=== PATIENT | female | born 1980 | race Caucasian/White ===

== ENCOUNTER 2017-02-10 18:55 | Emergency (ER) | payer SELFPAY ==
[~2017-02-10 18:55] MED LIST: ALBUTEROL17 GM INH; AMLODIPINE BESY10 MG PO; AMLODIPINE BESYL5 MG PO; ATIVAN0.5 MG PO; ATIVAN1 M2 PO; ATIVAN1 MG; ATIVAN1 MG PO; BACTRIM DS TABL1 TAB PO; BENTYL10 M1 PO; BUSPIRONE HCL15 M2 PO; CATAFLAM50 MG PO; CATAPRES-TTS 11 EACH TP; CIPRO500 M2 PO; CIPROFLOXACIN500 M3 PO; CLINDAMYCIN HC150 MG PO; CLINDAMYCIN HC300 M2 PO; COLACE100 M1 PO; CYCLOBENZAPRINE10 M1 PO; CYCLOBENZAPRINE5 M1 PO; CYMBALTA60 M1 PO; DARVOCET-N 1001 TAB PO; DEXAMETHASONE2 M1 PO; DIFLUCAN150 MG PO; ETODOLAC400 MG/TAB PO; FLEXERIL 10MG PO; GABAPENTIN300 M1 PO; HYDROCHLOROTH12.5 M1 PO; HYDROCHLOROTHIA25 MG PO; HYDROCODON-ACE1 EA16 PO; IBUPROFEN600 M1 PO; INDERAL PO; INDERAL10 MG PO; INDERAL20 MG PO; K-DUR20 ME1 PO; KLONOPIN0.5 MG PO; LEXAPRO10 MG PO; LISINOPRIL10 MG PO; LORAZEPAM1 M1 PO; MACROBID 100 M100 MG; MACROBID 100 M100 MG PO; MOBIC7.5 M2 PO; MOTRIN400 MG PO; NORCO 5-325 TA1 EACH PO; NORCO 5/325 TAB1 TAB PO; NORCO 5/3251 TA1 PO; NORCO 5/3251 TAB PO; OXYCODONE HCL5 M1 PO; PAXIL20 MG; PAXIL20 MG PO; PAXIL40 M1 PO; PAXIL40 MG PO; PERCOCET 5-3251 EACH PO; PHENERGAN W/CO120 ML PO; PREDNISONE10 M1 PO; PRENATAL1 EACH PO; PRENATAL1 TAB; PRENATAL1 TAB PO; PRINZIDE 20/12.1 TAB PO; PROAIR HFA8.5 GM IH; PROVENTIL HFA6.7 G1 IH; PYRIDIUM200 MG PO; ROBAXIN-750750 M1 PO; SOMA350 M1 PO; SUDAFED PO; TERAZOL 320 GM VG; TRANDATE100 MG PO; TYLENOL WITH C1 EACH PO; ULTRAM50 M1 PO; VISTARIL50 MG PO; XANAX1 M1 PO; ZANAFLEX4 M2 PO; ZESTORETIC 10-1 EAC1 PO; ZITHROMAX250 M1 PO; ZITHROMAX250MG Z-PAK PO; [UNRECOGNIZED DRUG - OTHER] PO
[2017-02-10] MEDS ORDERED: NEURONTIN100 M1 PO (19:26)
[2017-02-10] MEDS ORDERED: PROMETHAZINE-C118 ML PO (20:37)
[2017-02-10] MEDS ORDERED: TESSALON PERLE100 M1 PO (20:37)
[2017-02-10] MEDS ORDERED: AZITHROMYCIN250 M1 PO (20:37)
[2017-02-17] MEDS ORDERED: ATIVAN1 M2 PO (15:25)
[2017-05-12] MEDS ORDERED: KEFLEX500 M4 PO (01:21)
[2017-06-26] MEDS ORDERED: ADDERALL 10 MG10 M2 PO (19:47)
[2017-06-27] MEDS ORDERED: PERCOCET 5-3251 EACH PO (13:29)
[2017-07-02] MEDS ORDERED: POTASSIUM CHLO20 ME3 PO (23:19)
[2017-07-02] MEDS ORDERED: VENTOLIN HFA18 G2 PO (23:21)
== END 2017-02-10 20:52 ==
LOC: EDMED 18:55
DX: J20.9 Acute bronchitis, unspecified (principal); I10 Essential (primary) hypertension; F17.210 Nicotine dependence, cigarettes, uncomplicated; Z88.1 Allergy status to other antibiotic agents

== ENCOUNTER 2017-02-17 15:32 | Emergency (ER) | payer SELFPAY ==
[~2017-02-17 15:32] MED LIST changes: +AZITHROMYCIN250 M1 PO; +NEURONTIN100 M1 PO; +PROMETHAZINE-C118 ML PO; +TESSALON PERLE100 M1 PO
[2017-02-17] MEDS ORDERED: CYCLOBENZAPRINE5 M1 PO (16:12)
[2017-05-12] MEDS ORDERED: KEFLEX500 M4 PO (01:21)
[2017-06-26] MEDS ORDERED: ADDERALL 10 MG10 M2 PO (19:47)
[2017-06-27] MEDS ORDERED: PERCOCET 5-3251 EACH PO (13:29)
[2017-07-02] MEDS ORDERED: POTASSIUM CHLO20 ME3 PO (23:19)
[2017-07-02] MEDS ORDERED: VENTOLIN HFA18 G2 PO (23:21)
== END 2017-02-17 15:34 ==
LOC: EDMED 15:32
DX: M54.31 Sciatica, right side (principal); I10 Essential (primary) hypertension; Z79.899 Other long term (current) drug therapy

== ENCOUNTER 2017-02-26 19:04 | Emergency (ER) | payer SELFPAY ==
[2017-02-26] MEDS ORDERED: ETODOLAC400 MG/TAB PO (19:40)
[2017-05-12] MEDS ORDERED: KEFLEX500 M4 PO (01:21)
[2017-06-26] MEDS ORDERED: ADDERALL 10 MG10 M2 PO (19:47)
[2017-06-27] MEDS ORDERED: PERCOCET 5-3251 EACH PO (13:29)
[2017-07-02] MEDS ORDERED: POTASSIUM CHLO20 ME3 PO (23:19)
[2017-07-02] MEDS ORDERED: VENTOLIN HFA18 G2 PO (23:21)
== END 2017-02-26 21:26 ==
LOC: EDMED 19:04
DX: R51 Headache (principal); R42 Dizziness and giddiness; I10 Essential (primary) hypertension; F17.200 Nicotine dependence, unspecified, uncomplicated; Z79.899 Other long term (current) drug therapy
CPT/HCPCS: J0780; J1885; J2060

== ENCOUNTER 2017-02-28 16:41 | Emergency (ER) | payer SELFPAY ==
[2017-02-28] MEDS ORDERED: CYCLOBENZAPRINE5 M1 PO (16:47)
[2017-02-28] MEDS ORDERED: ATIVAN1 M2 PO (17:22)
[2017-05-12] MEDS ORDERED: KEFLEX500 M4 PO (01:21)
[2017-06-26] MEDS ORDERED: ADDERALL 10 MG10 M2 PO (19:47)
[2017-06-27] MEDS ORDERED: PERCOCET 5-3251 EACH PO (13:29)
[2017-07-02] MEDS ORDERED: POTASSIUM CHLO20 ME3 PO (23:19)
[2017-07-02] MEDS ORDERED: VENTOLIN HFA18 G2 PO (23:21)
== END 2017-02-28 17:28 ==
LOC: EDMED 16:41
DX: F41.0 Panic disorder [episodic paroxysmal anxiety] (principal); F19.939 Other psychoactive substance use, unspecified with withdrawal, unspecified; I10 Essential (primary) hypertension; Z90.49 Acquired absence of other specified parts of digestive tract; Z79.899 Other long term (current) drug therapy; Z98.890 Other specified postprocedural states

== ENCOUNTER 2017-03-11 17:43 | Emergency (ER) | payer SELFPAY ==
[2017-03-11] MEDS ORDERED: ATIVAN1 M2 PO (18:18)
[2017-05-12] MEDS ORDERED: KEFLEX500 M4 PO (01:21)
[2017-06-26] MEDS ORDERED: ADDERALL 10 MG10 M2 PO (19:47)
[2017-06-27] MEDS ORDERED: PERCOCET 5-3251 EACH PO (13:29)
[2017-07-02] MEDS ORDERED: POTASSIUM CHLO20 ME3 PO (23:19)
[2017-07-02] MEDS ORDERED: VENTOLIN HFA18 G2 PO (23:21)
== END 2017-03-11 18:33 ==
LOC: EDMED 17:43
DX: F41.9 Anxiety disorder, unspecified (principal); I10 Essential (primary) hypertension; F17.210 Nicotine dependence, cigarettes, uncomplicated; Z90.49 Acquired absence of other specified parts of digestive tract

== ENCOUNTER 2017-03-24 18:51 | Emergency (ER) | payer SELFPAY ==
[2017-03-24] MEDS ORDERED: NEURONTIN600 M1 PO (19:06)
[2017-03-24 19:54] LABS: BASO % 0.3 % (0-2); EOS % 0.9 % (0-7); EOSINOPHIL ABSOLUTE COUNT 0.1 tho/cmm (0.0-0.7); HCT-HEMATOCRIT 43.1 % (34.0-49.0); IMMATURE GRANULOCYTES ABSOLUTE 0.02 tho/cmm (0-0.03); IMMATURE GRANULOCYTES PERCENT 0.2 % (0-0.3); LYMPH % 21.1 % (20-45); LYMPH ABSOLUTE COUNT 2.5 tho/cmm (0.8-4.5); MCH (MEAN CORPUSCULAR HGB) 29.2 pg (28.0-32.0); MCHC MEAN CORPUSCULAR HGB CONC 34.8 % (32.0-36.0); MEAN PLATELET VOLUME 11.5 cmc (9.4-12.4); MONO % 7.1 % (0-12); MONOCYTE ABSOLUTE COUNT 0.8 tho/cmm (0.0-1.2); NEUTROPHIL ABSOLUTE COUNT 8.2 tho/cmm (1.6-8.0); NEUTROPHIL-AUTOMATED 8.2 tho/cmm (1.6-8.0); NEUTROPHILS % 70.4 % (40-80); PLATELET COUNT 339 tho/cmm (150-450); RED BLOOD COUNT 5.13 mil/cmm (4.00-5.20); RED CELL DISTRIBUTION WIDTH 13.4 % (12.4-16.4); WHITE BLOOD COUNT 11.6 tho/cmm (4.0-10.0)
[2017-03-24 21:21] LABS: ANION GAP 12 mmol/L (0-20); BLOOD UREA NITROGEN 10 mg/dl (6-24); CALCIUM 9.5 mg/dl (8.5-10.5); CARBON DIOXIDE-VENOUS 27 mmol/L (22-32); CHLORIDE 100 mmol/l (96-110); CREATININE 0.76 mg/dl (0.50-1.10); GLUCOSE 99 mg/dL (70-110); POTASSIUM 3.4 mmol/L (3.7-5.1); SODIUM 136 mmol/L (135-145); eGFR VALUE FOR BLACK >90 mL/Min
[2017-05-12] MEDS ORDERED: KEFLEX500 M4 PO (01:21)
[2017-06-26] MEDS ORDERED: ADDERALL 10 MG10 M2 PO (19:47)
[2017-06-27] MEDS ORDERED: PERCOCET 5-3251 EACH PO (13:29)
[2017-07-02] MEDS ORDERED: POTASSIUM CHLO20 ME3 PO (23:19)
[2017-07-02] MEDS ORDERED: VENTOLIN HFA18 G2 PO (23:21)
== END 2017-03-24 22:06 ==
LOC: EDMED 18:51
PROVIDERS: Emergency Medicine
DX: E86.0 Dehydration (principal); N93.9 Abnormal uterine and vaginal bleeding, unspecified; I10 Essential (primary) hypertension; F17.200 Nicotine dependence, unspecified, uncomplicated; F41.9 Anxiety disorder, unspecified; Z90.49 Acquired absence of other specified parts of digestive tract

== ENCOUNTER 2017-04-06 13:52 | Emergency (ER) | payer MEDICAID ==
[~2017-04-06 13:52] MED LIST changes: +NEURONTIN600 M1 PO
[2017-04-06 16:36] LABS: BASO % 0.2 % (0-2); EOS % 0.6 % (0-7); EOSINOPHIL ABSOLUTE COUNT 0.1 tho/cmm (0.0-0.7); HCT-HEMATOCRIT 42.2 % (34.0-49.0); HGB-HEMOGLOBIN 14.6 gm/dl (12.0-15.5); IMMATURE GRANULOCYTES ABSOLUTE 0.02 tho/cmm (0-0.03); IMMATURE GRANULOCYTES PERCENT 0.2 % (0-0.3); LYMPH % 23.9 % (20-45); LYMPH ABSOLUTE COUNT 2.3 tho/cmm (0.8-4.5); MCHC MEAN CORPUSCULAR HGB CONC 34.6 % (32.0-36.0); MCV (MEAN CELL VOLUME) 83.7 fl (82.0-96.0); MEAN PLATELET VOLUME 11.1 cmc (9.4-12.4); MONO % 10.2 % (0-12); NEUTROPHIL ABSOLUTE COUNT 6.3 tho/cmm (1.6-8.0); NEUTROPHIL-AUTOMATED 6.3 tho/cmm (1.6-8.0); NEUTROPHILS % 64.9 % (40-80); PLATELET COUNT 319 tho/cmm (150-450); RED BLOOD COUNT 5.04 mil/cmm (4.00-5.20); RED CELL DISTRIBUTION WIDTH 13.8 % (12.4-16.4); WHITE BLOOD COUNT 9.8 tho/cmm (4.0-10.0)
[2017-04-06 16:48] LABS: ANION GAP 15 mmol/L (0-20); BLOOD UREA NITROGEN 8 mg/dl (6-24); CALCIUM 9.3 mg/dl (8.5-10.5); CARBON DIOXIDE-VENOUS 22 mmol/L (22-32); CHLORIDE 105 mmol/l (96-110); CREATININE 0.71 mg/dl (0.50-1.10); GLUCOSE 97 mg/dL (70-110); POTASSIUM 3.6 mmol/L (3.7-5.1); SODIUM 138 mmol/L (135-145); eGFR VALUE FOR BLACK >90 mL/Min
[2017-04-06 16:50] LABS: PREGNANCY-SERUM NEGATIVE (NEGATIVE)
[2017-04-06] MEDS ORDERED: ORPHENADRINE C100 M1 PO (17:51)
[2017-04-07] MEDS ORDERED: ORPHENADRINE C100 M1 PO (11:49)
[2017-05-12] MEDS ORDERED: KEFLEX500 M4 PO (01:21)
[2017-06-26] MEDS ORDERED: ADDERALL 10 MG10 M2 PO (19:47)
[2017-06-27] MEDS ORDERED: PERCOCET 5-3251 EACH PO (13:29)
[2017-07-02] MEDS ORDERED: POTASSIUM CHLO20 ME3 PO (23:19)
[2017-07-02] MEDS ORDERED: VENTOLIN HFA18 G2 PO (23:21)
== END 2017-04-06 18:05 ==
LOC: EDMED 13:52
PROVIDERS: Emergency Medicine
DX: M54.9 Dorsalgia, unspecified (principal); G89.29 Other chronic pain; R09.1 Pleurisy; I10 Essential (primary) hypertension; F41.9 Anxiety disorder, unspecified; F41.0 Panic disorder [episodic paroxysmal anxiety]; F17.200 Nicotine dependence, unspecified, uncomplicated; Z90.49 Acquired absence of other specified parts of digestive tract; Z79.899 Other long term (current) drug therapy
CPT/HCPCS: J2360

== ENCOUNTER 2017-04-07 11:42 | Emergency (ER) | payer MEDICAID ==
[~2017-04-07 11:42] MED LIST changes: +ORPHENADRINE C100 M1 PO
[2017-04-07] MEDS ORDERED: ORPHENADRINE C100 M1 PO (11:49)
[2017-05-12] MEDS ORDERED: KEFLEX500 M4 PO (01:21)
[2017-06-26] MEDS ORDERED: ADDERALL 10 MG10 M2 PO (19:47)
[2017-06-27] MEDS ORDERED: PERCOCET 5-3251 EACH PO (13:29)
[2017-07-02] MEDS ORDERED: POTASSIUM CHLO20 ME3 PO (23:19)
[2017-07-02] MEDS ORDERED: VENTOLIN HFA18 G2 PO (23:21)
== END 2017-04-07 14:09 ==
LOC: EDMED 11:42
DX: T42.8X5A Adverse effect of antiparkinsonism drugs and other central muscle-tone depressants, initial encounter (principal); I10 Essential (primary) hypertension; F41.9 Anxiety disorder, unspecified; Z90.49 Acquired absence of other specified parts of digestive tract; Z98.890 Other specified postprocedural states; F17.200 Nicotine dependence, unspecified, uncomplicated; Z79.899 Other long term (current) drug therapy
CPT/HCPCS: J2930; J7030